=== PATIENT | female | born 1955 | race African-American/Black ===

== ENCOUNTER → 2017-05-29 | Outpatient (CLI) | payer OTHER | LOC: RAD 14:57 | DX: Z12.31 Encounter for screening mammogram for malignant neoplasm of breast (principal) ==

== ENCOUNTER → 2018-06-15 | Outpatient (CLI) | payer OTHER | LOC: RAD 10:59 | DX: Z12.31 Encounter for screening mammogram for malignant neoplasm of breast (principal) ==